=== PATIENT | female | born 1950 | race Caucasian/White ===

== ENCOUNTER → 2018-12-01 07:35 | Outpatient (CLI) | payer MEDICARE, OTHER, SELFPAY ==
--- NOTE | 2018-12-01 | DI.MRI.S_ITS ---
PROCEDURE: MR LUMBAR SPINE WO CON INDICATIONS: Low back pain TECHNIQUE: Noncontrast sagittal T1 spin echo and T2 fast echo, sagittal STIR, axial T1 and T2 fast spin echo through the lumbar spine. In cases with scoliosis, additional coronal T2 fast spin echo may be performed. COMPARISON: [facility], , L-SPINE WITHOUT CONTRAST, 11/02/2010, 17:28. FINDINGS: Image quality: Excellent. Alignment and Curvature: No plain films are available for comparison, for numbering purposes. Thus, for the purposes of this examination, 5 lumbar type vertebral bodies will be presumed, as denoted on the montage panel. This should be confirmed and correlated with plain films, prior to any lumbar spinal intervention. There is mild grade 1 retrolisthesis of L1 on L2 and L2 on L3. Bone Marrow: Marrow is of normal overall signal. No acute vertebral body compression fractures. Mild reactive signal within the endplates adjacent to the T12-L1, L1-L2, and L2-L3 intervertebral discs. Spinal Cord: Conus medullaris terminates at the lower L1 level. Visualized cord demonstrates normal signal and size. Paraspinous Soft Tissues: No paravertebral masses. Calculi within the gallbladder lumen are present. L1-L2: Moderate disc height loss and desiccation. Mild diffuse disc bulge. Mild facet hypertrophy bilaterally. Mild canal stenosis. No foraminal stenosis. No change. L2-L3: Mild disc height loss and desiccation. Mild diffuse disc bulge. Mild canal stenosis. Mild bilateral foraminal stenosis. No change. L3-L4: Mild disc height loss and desiccation. Mild diffuse disc bulge. Mild facet hypertrophy bilaterally. Mild canal stenosis. Mild left greater than right foraminal stenosis. No change. L4-L5: Mild disc height loss and desiccation. Mild diffuse disc bulge. Mild bilateral facet hypertrophy. Mild canal stenosis. No foraminal stenosis. No change. L5-S1: Moderate disc since desiccation. Mild diffuse disc bulge. Mild bilateral facet hypertrophy. Mild canal stenosis. Mild right foraminal stenosis. No left foraminal stenosis. No change. IMPRESSION: 1. 5 lumbar type vertebral bodies were presumed for the current report. Plain films of the lumbar spine are recommended for confirmation, prior to any lumbar spinal intervention. 2. Multilevel degenerative disc and facet disease. 3. Mild multilevel canal and foraminal stenoses. No neural impingement. 4. Cholelithiasis. Dictated by: Safia Umanzor M.D. on 12/01/2018 at 9:31 Approved by: Safia Umanzor M.D. on 12/01/2018 at 9:36
== END ==
PROVIDERS: PCP Nurse Practitioner; Visit Provider Nurse Practitioner
DX: M51.36 Other intervertebral disc degeneration, lumbar region (principal); M54.5 Low back pain; K80.20 Calculus of gallbladder without cholecystitis without obstruction
CPT/HCPCS: 72148